=== PATIENT | female | born 1980 | race Caucasian/White ===

== ENCOUNTER 2017-12-05 23:28 | Emergency (ER) | payer OTHER ==
--- NOTE | 2017-12-05 23:39 | ED Physician Documentation ---
Skin Rash - HISTORIAN Historian: patient - HPI Chief Complaint: Skin Rash Onset: hours Timing: better Location: trunk, RUE, LUE Quality: itchy Context: Medication Exposure: other (bactrim DS) Context: Food Exposure: none Further Comments: yes (37 year old female patient presents with complaints of diffuse rash to upper back, chest, and bilateral arms. Patient started bactrim this afternoon for cellulitis related to breast augmentation. C/O lips swelling; states they are better after the benadryl. Took 100mg of Benadryl over the past hour.) - ROS CONST: none CVS/RESP: none EYES/ENT: none GI/: none MS/SKIN/LYMPH: none NEURO/PSYCH: none - PAST HX Past History: diabetes Type 2, other (depression, hypothyroidism) Surgeries/Procedures: Yes (breast augmentation) Allergies/Adverse Reactions: Allergies Allergy/AdvReac Type Severity Reaction Status Date / Time sulfamethoxazole Allergy Mild Hives Verified 12/06/17 00:57 [From Bactrim] trimethoprim [From Bactrim] Allergy Mild Hives Verified 12/06/17 00:57 Home Medications: Ambulatory Orders Medication Instructions Recorded Levothyroxine Sodium [Synthroid] 100 mcg PO 0700 11/17/15 Metformin HCl [Glucophage] 500 mg PO BID 11/17/15 Buspirone HCl [Buspar] 5 mg PO BID 12/06/17 - SOCIAL HX Smoking History: non-smoker - FAMILY HX Family History: denies: none - VITAL SIGNS Vital Signs: Vital Signs Temp Pulse Resp BP Pulse Ox 96.6 F L 105 H 22 124/92 98 12/05/17 23:50 12/05/17 23:50 12/05/17 23:50 12/05/17 23:50 12/05/17 23:50 - REVIEWED ASSESSMENTS Nursing Assessment Reviewed: Yes Vitals Reviewed: Yes Progress - Progress Progress: rash improving with benadryl, patient states "It came back after the first benadryl". Medicated with loratadine and depo medrol in ER; instructed to stop bactrim and contact surgeon. ED Results Lab/Radiology - Orders Orders: ED Orders Category Date Time Status Loratadine [Claritin] Med 12/05/17 23:39 Discontinued 10 mg PO NOW ONE methylPREDNISolone ACETATE [Depo-Medrol] Med 12/05/17 23:39 Discontinued 80 mg IM NOW ONE Skin Rash Physical Exam - EXAM General Appearance: mild distress Skin: warm,dry Location: generalized, chest, back, extremities Character: maculopapular, fine, erythematous Extremities: non-tender, nml ROM, no edema Respiratory: no resp distress, chest non-tender, breath sounds normal CVS: reg. rate & rhythm, heart sounds nml Abdomen: non-tender, no organomegaly, nml bowel sounds, no distention Neuro/Psych: oriented x3, CN's nml as tested, motor nml, sensation nml, mood/affect nml Discharge Clincal Impression: Allergic reaction caused by a drug Qualifiers: Encounter type: initial encounter Qualified Code(s): T78.40XA - Allergy, un specified, initial encounter Referrals: Primary Doctor,No [REFERRING] - 2 Days Additional Instructions: Continue Benadryl 25-50mg by mouth every 6 hours until symptoms resolve Take either Claritan, Allergra, or Zyrtec daily until symptoms resolve. See your primary doctor or return to the ER if you have increase shortness of breath or difficulty breathing. Hives can be treated at home with the above Benadryl regimen. Stop bactrim. Contact your physician in the morning. Condition: Stable Disposition: HOME, SELF-CARE Decision to Admit: NO Decision Time: 23:40
[2017-12-05 23:40] VITALS: BP 124/92
[2017-12-05] MEDS: methylPREDNISolone ACETATE 80 MG/ML VIAL IM ONE (23:50)
[2017-12-05] MEDS: LORATADINE 10 MG TABLET PO ONE (23:50)
== END 2017-12-05 23:50 | disposition home or self-care (01) ==
LOC: ED 23:28
DX: R21 Rash and other nonspecific skin eruption (principal); T78.40XA Allergy, unspecified, initial encounter; X58.XXXA Exposure to other specified factors, initial encounter; Y92.9 Unspecified place or not applicable; Y93.9 Activity, unspecified; Y99.9 Unspecified external cause status; T88.7XXA Unspecified adverse effect of drug or medicament, initial encounter
CPT/HCPCS: 96372; 99283; J1040